=== PATIENT | male | born 1955 | race Caucasian/White ===

== ENCOUNTER 2021-05-12 14:56 | Inpatient (IN) ==
[2021-05-12 17:41] LABS: Urine Appearance Cloudy; Urine Bilirubin Negative (Negative); Urine Blood 3+ (Negative); Urine Color Amber; Urine Glucose Negative (Negative); Urine Ketones Trace (Negative); Urine Nitrite Negative (Negative); Urine Protein 3+(>=500 mg/dL) (Negative); Urine Specific Gravity 1.026 (1.002-1.030); Urine Urobilinogen Positive (Negative)
[2021-05-12 17:45] LABS: Urine Bacteria 1+ (Absent); Urine Red Blood Cell 3+(>10/hpf) (Absent); Urine White Blood Cell 3+(>20/hpf) (Absent)
[2021-05-12] MEDS ORDERED: Lactated Ringers 1000 ml BAG IV.FLUID IV ONE (19:04)
[2021-05-12] MEDS ORDERED: NS 0.9% 1000 ml BAG 3,000 ML IV ONE (19:05)
[2021-05-12 21:50] LABS: ABS Lymphocytes 0.3 10^3/ul (1.0-4.8); ABS Monocytes 0.5 10^3/ul (0-0.8); ABS Neutrophils 3.7 10^3/ul (1.5-7.7); Hematocrit 44 % (42-52); Hemoglobin 15.5 g/dL (14.0-18.0); Lymphocyte % 7.3 %; Mean Corpuscular HGB Conc 36 g/dL (31-36); Mean Corpuscular Hemoglobin 35 pg (27-31); Mean Corpuscular Volume 98 fL (80-94); Mean Platelet Volume 9.2 fL (7.4-10.4); Platelet Count 77 10^3/uL (150-450); Red Blood Count 4.43 10^6 /uL (4.18-5.48); Red Cell Distribution Width 13 % (10-15); White Blood Count 4.6 10^3/uL (3.5-10.8)
[2021-05-12 21:56] LABS: Albumin 3.2 g/dL (3.2-5.2); Albumin/Globulin Ratio 0.9 (1-3); C Reactive Protein 86.62 mg/L (<8.01); Calcium 8.4 mg/dL (8.6-10.3); EGFR African American 112.5 (>60); Globulin 3.6 g/dL (2-4); Potassium 3.9 mmol/L (3.5-5.0); Total Bilirubin 2.1 mg/dL (0.2-1.0); Total Protein 6.8 g/dL (6.4-8.9)
[2021-05-12 21:57] LABS: Troponin I 0.01 ng/mL (<0.03)
[2021-05-12] MEDS ORDERED: cefTRIAXone 1 gm/50 mL NS BAG 1 GM/50 ML BAG IV ONE (22:44)
[2021-05-12 22:47] LABS: Activated Partial Thrombo Time 32.8 seconds (26.0-38.0); INR 1.31 (0.82-1.09)
[2021-05-13] MEDS ORDERED: Ondansetron 4 mg VIAL 2 MG/ML 2 ml VIAL IV PRN
[2021-05-13] MEDS ORDERED: Dextrose 50% Syringe 50 ml 25 GM/50 ML SYRINGE IV PUSH PRN (00:11)
[2021-05-13] MEDS ORDERED: Lactated Ringers 1000 ml BAG 1,000 ML IV SCH ×3 (01:00→05:49)
[2021-05-13 05:30] LABS: Magnesium 1.8 mg/dL (1.9-2.7)
[2021-05-13] MEDS ORDERED: Magnesium Sulfate 2 gm BAG 2 GM/50 ML BAG IVPB ONE (05:37)
[2021-05-13] MEDS ORDERED: Metoprolol Tartrate 5 mg VIAL 5 ml VIAL (1 mg/ml) IV ONE ×3 (05:43→06:55)
[2021-05-13] MEDS: Cholecalciferol (VIT D3) 1,000 unit TAB PO SCH (09:14)
[2021-05-13] MEDS: CMCS: OMEGA-3 FATTY ACID 1000 mg(NF) PO SCH (09:15)
[2021-05-13] MEDS: Vitamin THERAPEUTIC TAB PO SCH (09:15)
[2021-05-13] MEDS ORDERED: NS 0.9% 1000 ml BAG 1,000 ML IV ONE (14:23)
[2021-05-13 15:02] LABS: Calcium 7.8 mg/dL (8.6-10.3); EGFR African American 83.9 (>60); EGFR Non-African American 69.4 (>60); Potassium 4.4 mmol/L (3.5-5.0)
[2021-05-13 16:45] LABS: HIV 4th Generation Nonreactive (Nonreactive)
[2021-05-13] MEDS ORDERED: cefTRIAXone 1 gm/50 mL NS BAG 1 GM/50 ML BAG IVPB SCH (23:00)
[2021-05-14 07:54] LABS: ABS Lymphocytes 0.6 10^3/ul (1.0-4.8); ABS Monocytes 0.4 10^3/ul (0-0.8); ABS Neutrophils 1.9 10^3/ul (1.5-7.7); Eosinophil % 1.6 %; Hematocrit 38 % (42-52); Hemoglobin 13.6 g/dL (14.0-18.0); Lymphocyte % 19.1 %; Mean Corpuscular HGB Conc 36 g/dL (31-36); Mean Corpuscular Hemoglobin 35 pg (27-31); Mean Corpuscular Volume 99 fL (80-94); Mean Platelet Volume 9.8 fL (7.4-10.4); Platelet Count 57 10^3/uL (150-450); Red Blood Count 3.88 10^6 /uL (4.18-5.48); Red Cell Distribution Width 13 % (10-15)
[2021-05-14 08:10] LABS: Albumin 2.7 g/dL (3.2-5.2); Albumin/Globulin Ratio 0.9 (1-3); Calcium 7.6 mg/dL (8.6-10.3); EGFR Non-African American 91.7 (>60); Globulin 3.1 g/dL (2-4); Potassium 3.9 mmol/L (3.5-5.0); Total Bilirubin 1.4 mg/dL (0.2-1.0); Total Protein 5.8 g/dL (6.4-8.9)
[2021-05-14 08:11] LABS: Indirect Bilirubin 0.7 mg/dL (0.3-1.0)
[2021-05-14] MEDS: CMCS: OMEGA-3 FATTY ACID 1000 mg(NF) PO SCH (08:16)
[2021-05-14] MEDS: Cholecalciferol (VIT D3) 1,000 unit TAB PO SCH (08:16)
[2021-05-14] MEDS: Vitamin THERAPEUTIC TAB PO SCH (08:16)
[2021-05-14 12:01] VITALS: BP 131/76
[2021-05-15 10:24] LABS: Cytomegalovirus IgG Antibody Positive (Negative)
== END 2021-05-14 15:40 | disposition home or self-care (01) | DRG 720 ==
LOC: ED 14:56 → MED 14:56
PROVIDERS: ADMIT Student in an Organized Health Care Education/Training Program; ATTEND Internal Medicine

== ENCOUNTER 2024-07-07 13:49 | Observation (INO) ==
[~2024-07-07 13:49] MED LIST: Dexamethasone IV 4 MG/ML VIAL 1 ml VIAL ONE; Lidocaine 2% PF 5 ML VIAL ONE; Metoclopramide 5 MG/ML VIAL (10 mg) IV PRN; NS 0.45% 1000 ml BAG 1,000 ML IV SCH; Naloxone 0.4 mg VIAL 0.4 mg/ml 1 ml VIAL IV PRN; Ondansetron 4 mg VIAL 2 MG/ML 2 ml VIAL IV PRN; Ondansetron 4 mg VIAL 2 MG/ML 2 ml VIAL ONE; Propofol 10 MG/ML 20 ML BTL ONE; fentaNYL 100 mcg/2 ml 50 MCG/ML VIAL ONE
[2024-07-07 14:43] LABS: Rapid COVID-19 Molecular Undetected (Undetected)
[2024-07-07] MEDS ORDERED: Lidocaine 1% VIAL 10 MG/ML 30 ML VIAL ONE (14:47)
[2024-07-07] MEDS ORDERED: fentaNYL 100 mcg/2 ml 50 MCG/ML VIAL ONE ×3 (14:47→18:18)
[2024-07-07] MEDS ORDERED: Midazolam 2 mg/2 ml VIAL 1 mg/ml 2 ml VIAL (2 mg) ONE (14:47)
[2024-07-07] MEDS ORDERED: ROPIVACAINE 5 MG/ML 30 ML BTL (0.5%) ONE ×2 (14:47→14:53)
[2024-07-07] MEDS ORDERED: Scopolamine 1 mg/72hr PATCH ONE (14:51)
[2024-07-07] MEDS ORDERED: ceFAZolin 2 GM in NS PREMIX 2 GM/100 ML BAG IVPB ONE (14:52)
[2024-07-07] MEDS ORDERED: Tranexamic Acid 1 GM/100ML BAG 2,000 MG/200 ML BAG IV ONE (14:52)
[2024-07-07] MEDS: Buffered Lidocaine 1% SYRIN 1 ml INTRADERM ONE (14:55)
[2024-07-07] MEDS: Lactated Ringers 1000 ml BAG 1,000 ML IV SCH (14:56)
[2024-07-07] MEDS ORDERED: Calcium Carb (TUMS) 500 mg CHEW TAB PO PRN (15:25)
[2024-07-07] MEDS ORDERED: Ondansetron 4 mg VIAL 2 MG/ML 2 ml VIAL IV PRN (15:25)
[2024-07-07] MEDS ORDERED: Lactulose 30 ml UDC PO PRN (15:25)
[2024-07-07] MEDS ORDERED: Morphine 2 MG/ML SYRINGE IV PRN (15:25)
[2024-07-07] MEDS ORDERED: Magnesium Hydroxide LIQ 30 ML UDC PO PRN (15:25)
[2024-07-07] MEDS ORDERED: Phenylephrine 40 mcg/mL 10mL (400mcg) SYRINGE ONE (15:43)
[2024-07-07] MEDS ORDERED: HYDROmorphone 0.5 MG/0.5 ML SYRINGE ONE (16:21)
[2024-07-07] MEDS: fentaNYL 100 mcg/2 ml 50 MCG/ML VIAL IV PRN (18:20)
[2024-07-07] MEDS ORDERED: HYDROmorphone 1 MG/1 ML SYRINGE ONE (18:28)
[2024-07-07] MEDS: HYDROmorphone 0.5 MG/0.5 ML SYRINGE IV SLOW PU ONE (18:35)
[2024-07-07] MEDS ORDERED: Dextrose 50% Syringe 50 ml 25 GM/50 ML SYRINGE IV PUSH PRN (19:33)
[2024-07-07] MEDS: LACTATED RINGERS 1000 ML BAG IV SCH (20:10)
[2024-07-07] MEDS: Magnesium Hydroxide LIQ 30 ML UDC PO SCH (21:09)
[2024-07-08] MEDS: ceFAZolin 2 GM in NS PREMIX 2 GM/100 ML BAG IVPB SCH (00:44)
[2024-07-08] MEDS: Acetaminophen IV 1 GM/100ML 1,000 MG/100 ML BAG IV ONE (01:21)
[2024-07-08] MEDS: Lactated Ringers 1000 ml BAG 1,000 ML IV SCH (01:21)
[2024-07-08] MEDS: Scopolamine 1 mg/72hr PATCH TRANSDERM ONE (01:21)
[2024-07-08] MEDS: Ondansetron ODT 4 mg TAB 4 MG TAB PO PRN (04:37)
[2024-07-08 06:40] LABS: Hematocrit 42.6 % (38-53); Hemoglobin 14.8 g/dL (13.2-16.3); Mean Platelet Volume 8.8 fL (7.5-11.2); Platelet Count 121 10^3/uL (150-450)
[2024-07-08] MEDS: Vitamin THERAPEUTIC TAB PO SCH (08:11)
[2024-07-08 08:15] LABS: Calcium 8.4 mg/dL (8.6-10.3); Creatinine, Serum 0.76 mg/dL (0.67-1.17); Potassium 4.5 mmol/L (3.5-5.0); eGFR CKD-EPI 97.9 (>60)
[2024-07-08 13:39] VITALS: BP 105/86
== END 2024-07-08 17:00 | disposition home or self-care (01) ==
LOC: SSU 13:49 → OR 13:49
PROVIDERS: ADMIT Orthopaedic Surgery Adult Reconstructive Orthopaedic Surgery; ATTEND Orthopaedic Surgery Adult Reconstructive Orthopaedic Surgery